=== PATIENT | female | born 1995 | race Caucasian/White ===

== ENCOUNTER 2020-08-05 14:20 | Emergency (ER) | payer OTHER, SELFPAY ==
[2020-08-05 14:28] VITALS: BP 129/90; PULSE 85; RESP 15; TEMP 36.4; O2SAT 100
--- NOTE | 2020-08-05 14:59 | ED.FEMALEGU ---
HPI - Female Genitourinary General Chief complaint: Vaginal Bleeding Stated complaint: vaginal bleeding Time Seen by Provider: 08/05/20 14:47 Source: patient Mode of arrival: ambulatory Limitations: no limitations History of Present Illness HPI Narrative: Patient is a 25-year-old female complaining of vaginal bleeding accompanied by mild lower abdominal cramping x2 weeks. Patient states that she is currently on oral contraceptive pills. Patient denies any change in her OCPs. Denies being . Denies any chest pain, shortness of breath, vaginal discharge, fever, chills or urinary symptoms. Related Data Allergies Allergy/AdvReac Type Severity Reaction Status Date / Time ibuprofen [From [facility]] Allergy Unknown Verified 08/05/20 14:27 Penicillins Allergy Hives Verified 08/05/20 14:27 Review of Systems Review of Systems: All systems reviewed & are unremarkable except as noted in HPI and below Constitutional: Constitutional: Denies body ache(s), Denies chills, Denies excessive sweating, Denies fatigue, Denies fever(s), Denies headache(s), Denies lethargy, Denies malaise, Denies weakness and Denies weight loss Eyes: Eyes: Denies blurry vision, Denies change in vision and Denies loss of vision ENT: Denies dizziness, Denies ear discharge, Denies headache(s), Denies lip swelling, Denies epistaxis, Denies nasal congestion, Denies neck pain, Denies throat swelling and Denies tongue swelling Cardiovascular: Cardiovascular: Denies chest pain, Denies chest pain at rest, Denies chest pain with activity, Denies diaphoresis, Denies rapid heart rate, Denies edema, Denies irregular heart rhythm, Denies lightheadedness, Denies palpitations, Denies dyspnea and Denies dyspnea on exertion Respiratory: Respiratory: Denies chest congestion, Denies cough, Denies hemoptysis, Denies dyspnea and Denies dyspnea on exertion Gastrointestinal: Gastrointestinal: Denies abdominal pain, Denies melena, Denies hematochezia, Denies diarrhea, Denies nausea, Denies vomiting and Denies hematemesis Musculoskeletal: Musculoskeletal: Denies abnormal gait, Denies deformity, Denies joint swelling, Denies limited range of motion, Denies neck pain and Denies numbness Neurologic: Denies Abnormal speech present, Denies abnormal gait, Denies confusion, Denies dizziness, Denies headache(s), Denies focal weakness, Denies loss of vision, Denies numbness, Denies Other visual disturbances, Denies Sensory deficit (Neuro) and Denies weakness Psychiatric: Psychiatric: Denies confusion, Denies depression, Denies auditory hallucinations, Denies homicidal ideation and Denies suicidal ideation Endocrine: Endocrine: Denies cold intolerance, Denies excessive sweating, Denies fatigue, Denies heat intolerance and Denies palpitations Hematologic/Lymphatic: Hematologic/Lymphatic: Denies easy bleeding and Denies easy bruising Allergic/Immunologic: Allergic/Immunologic: Denies lip swelling, Denies throat swelling and Denies tongue swelling PMF Social History Social History Gender identity (if verbalized by the patient): Female Comments Past medical history: None Family history: Noncontributory Social history: Non-smoker, occasional EtOH use, no drug use Exam Const: General: cooperative, healthy appearing, comfortable, no acute distress, well developed, alert and awake; No confusion Orientation/consciousness: oriented to person, oriented to place, oriented to time, patient oriented x3 and No confusion Limitations: no limitations HENMT: Head: normal to inspection, normocephalic and atraumatic Ears: hearing grossly normal bilaterally, TM normal on the right and TM normal on the left General nose exam: Normal external nose present, Normal nares present and No nasal discharge present Face and sinus: normal facial exam Mouth: Yes Normal oral and palatal mucosa present, Yes lip normal, Yes tongue normal and Yes oropharynx normal Throat: posterior oropharynx normal, tonsils normal and uv
[2020-08-05 15:41] LABS: Basophils Percent Auto 0.4 % (0.2-1.2); Eosinophils Absolute Auto 0.2 K/mm3 (0-0.3); Hematocrit 41.8 % (37.0-47.0); Hemoglobin 13.9 g/dL (12.0-15.0); Immature Granulocyte Absolute 0.02 K/mm3 (0.00-0.031); Immature Granulocyte Percent A 0.3 % (0-0.5); Lymphocytes Absolute Auto 1.58 K/mm3 (0.9-3.2); Lymphocytes Percent Auto 20.6 % (18.3-44.2); Mean Corpuscular HGB Conc 33.3 g/dl (32-36); Mean Corpuscular Hemoglobin 28.7 pg (26-34); Mean Corpuscular Volume 86.4 fl (80-100); Mean Platelet Volume 10.3 fl (7.4-10.4); Monocytes Absolute Auto 0.4 K/mm3 (0.1-0.6); Monocytes Percent Auto 5.3 % (2.6-8.5); Neutrophils Absolute Auto 5.5 K/mm3 (1.3-6.7); Neutrophils Percent Auto 71.4 % (45.5-73.1); Platelet Count Result 311 k/mm3 (150-375); Red Blood Count 4.84 M/mm3 (4.2-5.4); Red Cell Distribution Width 12.6 % (11.5-14.5); White Blood Count 7.7 K/mm3 (4.5-10.0)
[2020-08-05 15:51] LABS: Alanine Aminotransferase 17 U/L (4-35); Albumin Level 4.3 g/dL (3.5-5.1); Alkaline Phosphatase 116 U/L (38-126); Anion Gap 10 mmol/L (8-16); Aspartate Amino Transferase 27 U/L (14-36); Bilirubin,Total 0.2 mg/dL (0.2-1.3); Blood Urea Nitrogen 12 mg/dL (7-17); Calcium 9.9 mg/dL (8.4-10.2); Carbon Dioxide 27 mmol/L (22-30); Chloride 106 mmol/L (98-107); Estimated CRCL calculation 109 ml/min; Estimated Glomerular Filt Rate > 60; Glucose 93 mg/dL (65-105); Potassium 4.3 mmol/L (3.4-5.0); Sodium 143 mmol/L (137-145)
[2020-08-05] MEDS: SODIUM CHLORIDE 0.9% IV 1,000 ML 999 ML IV CONT (15:52)
[2020-08-05 16:13] VITALS: O2SAT 100
[2020-08-05 16:15] VITALS: BP 132/82; O2SAT 100
[2020-08-05] MEDS: IBUPROFEN 400 MG TABLET 800 MG PO (16:32)
[2020-08-05 17:20] VITALS: BP 117/73; PULSE 80; RESP 16; TEMP 36.8; O2SAT 100
== END 2020-08-05 17:20 | disposition home or self-care (01) ==
PROVIDERS: Emergency Provider Emergency Medicine
DX: N93.8 Other specified abnormal uterine and vaginal bleeding (principal)
CPT/HCPCS: 36415; 80053; 81025; 85025; 96360; 99283; A9270; J7030

== ENCOUNTER 2020-08-06 10:00 | Outpatient (CLI) | payer OTHER, SELFPAY ==
[2020-08-06 11:05] LABS: Free T4 Free Thyroxine 1.06 ng/mL (0.78-2.19)
[2020-08-09 08:46] LABS: Prolactin 8.2 ng/mL (***)
== END 2020-08-06 10:01 | disposition home or self-care (01) ==
LOC: ANHLAB 10:02
PROVIDERS: Visit Provider Obstetrics & Gynecology
DX: N93.9 Abnormal uterine and vaginal bleeding, unspecified (principal)
CPT/HCPCS: 36415; 84146; 84439; 84443

== ENCOUNTER 2020-08-12 14:34 | Outpatient (CLI) | payer OTHER, SELFPAY ==
--- NOTE | ~2020-08-12 | US_ITS ---
EXAMINATION: US pelvic complete w TV DATE: 08/12/2020 15:06 INDICATION: Abnormal uterine and vaginal bleeding Comparison:No prior studies for comparison. TECHNIQUE: Multiple transabdominal and endovaginal sonographic images of the pelvis performed. FINDINGS: The uterus measures 8 x 3.1 x 4.4 cm. The endometrial complex measures 8 mm. The right ovary measures 1.7 x 2.6 x 1.9 cm and the left ovary measures 2.5 x 1.3 x 1.4 cm. There ar e small follicles in each ovary. There is a 1.7 cm right ovarian cyst. Normal doppler signal in both ovaries. There is no free fluid in the pelvis. There are no abnormal masses seen on either side. IMPRESSION: 1. Right ovarian cyst measuring 1.7 cm. Otherwise, unremarkable pelvic ultrasound. Reviewed, dictated and finalized at location A. IMPRESSION: 1. Right ovarian cyst measuring 1.7 cm. Otherwise, unremarkable pelvic ultrasou nd.
== END 2020-08-12 14:35 | disposition home or self-care (01) ==
PROVIDERS: Visit Provider Obstetrics & Gynecology
DX: N93.9 Abnormal uterine and vaginal bleeding, unspecified (principal); N83.291 Other ovarian cyst, right side
CPT/HCPCS: 76830; 76856

== ENCOUNTER 2023-02-09 19:20 | Emergency (ER) | payer OTHER, SELFPAY ==
[2023-02-09 19:38] VITALS: BP 152/88; PULSE 80; RESP 16; TEMP 36.6; O2SAT 98
--- NOTE | 2023-02-09 19:41 | ED.EYEPROB ---
HPI - Eye Problem General Chief complaint: Eye Problems Stated complaint: left eye pain Source: patient, RN notes reviewed and old records reviewed Mode of arrival: ambulatory Limitations: no limitations History of Present Illness HPI Narrative: 27-year-old female presents to [facility] with complaints of left eye redness, irritation, drainage this started today. Patient denies any other complaints. MD chief complaint: eye redness Onset (ago): day(s) (1) Related Data Allergies Allergy/AdvReac Type Severity Reaction Status Date / Time ibuprofen [From [facility]] Allergy Unknown Verified 02/09/23 19:37 Penicillins Allergy Hives Verified 02/09/23 19:37 Review of Systems Constitutional: Constitutional: Reports no additional constitutional complaints Eyes: Eyes: Reports as per HPI, Denies blind spots, Denies blurry vision, Denies exophthalmos, Denies change in vision, Denies dry eyes, Reports irritation, Reports itchy eyes, Denies loss of vision and Reports requires corrective lenses ENT: Reports system reviewed and no additional complaints, except as documented Cardiovascular: Cardiovascular: Reports no additional cardiovascular complaints Respiratory: Respiratory: Reports no additional respiratory complaints Neurologic: Reports system reviewed and no additional complaints, except as documented [facility] Past Medical History Medical History Anxiety Asthma Chlamydia History of blood transfusion Miscarriage Surgical History Surgical History History of cholecystectomy History of dilation and curettage [place] teeth removed Family History Family History Father Hypertension Heart disease Mother Depression Breast cancer Grandparent Heart disease Hypertension Cervical cancer Thyroid disorder Sibling Depression Social History Social History Smoking status: Current every day smoker Tobacco type: cigarettes Alcohol intake: current Alcohol use details: socially Substance use: former Substance use type: former substance user and other 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 There is no relevant family history pertinent to the patient complaint. Exam Const: General: cooperative, healthy appearing, no acute distress and well nourished Nutritional Appearance: well nourished Orientation/consciousness: patient oriented x3 Limitations: no limitations HENMT: Head: normal to inspection and normocephalic Ears: external ears normal, TM's normal bilaterally, mastoids normal and Abnormal EAC present Face/Nose/Sinus: normal facial exam Face and sinus: normal facial exam Mouth: Yes Normal oral and palatal mucosa present, Yes oropharynx normal and Yes moist mucous membranes Throat: posterior oropharynx normal, tonsils normal, uvula midline and no uvular edema Eyes: Visual Marcano: normal visual marcano by confrontation Alignment and Position: alignment normal Periorbital: periorbital findings normal Eyelids: eyelids normal Conjunctivae: conjunctivae normal Sclera: scleral abnormality left ( Erythematous) Pupils: Equal, round and reactive pupils present Resp: Effort & Inspection: normal respiratory effort, able to speak in complete sentences, no audible wheezes, no cough, no respiratory distress and no retractions Auscultation: clear to auscultation bilaterally, no crackles, no rales, no rhonchi and no wheezes Cardio: Rate: regular rate Rhythm: regular rhythm Skin: General skin exam: normal color and no rashes or lesions noted Neuro: General: patient oriented x3 Cranial nerve
== END 2023-02-09 19:50 | disposition home or self-care (01) ==
PROVIDERS: Emergency Provider Registered Nurse
DX: H10.32 Unspecified acute conjunctivitis, left eye (principal); F17.210 Nicotine dependence, cigarettes, uncomplicated; J45.909 Unspecified asthma, uncomplicated
CPT/HCPCS: 99213; G0463

== ENCOUNTER 2023-04-06 18:04 | Emergency (ER) | payer OTHER, SELFPAY ==
--- NOTE | ~2023-04-06 | XR_ITS ---
EXAMINATION: XR lumbar spine min 4V DATE: 04/06/2023 19:29 INDICATION: Sharp shooting low back pain TECHNIQUE: Anteroposterior and lateral views of the lumbar spine, and cone-down lateral view of the l umbosacral junction were obtained. COMPARISON: None. FINDINGS: Alignment is normal. Vertebral body and disc heights are normal. Sacral arches are intact. No fractur es identified. The lumbar facet and bilateral sacroiliac joint spaces appear normal. A few small phle boliths in the pelvis. IMPRESSION: 1. Negative lumbar spine radiographs. Reviewed, dictated and finalized at location A. LETTERER
--- NOTE | 2023-04-06 18:07 | ED.BACK ---
HPI - Back Pain/Injury General Chief Complaint: Back Pain/Injury Stated Complaint: back pain Time Seen by Provider: 04/06/23 18:06 Source: patient Mode of arrival: ambulatory Limitations: no limitations History of Present Illness HPI Narrative: Patient is a 19-year-old female who presents with low back pain that started today after bending over. Patient reports it is center back and does not radiate. Denies any numbness, tingling or weakness to lower extremities. Denies any loss of bowel or bladder. Has taken Tylenol and ibuprofen for pain. Denies any previous back history Related Data Allergies Allergy/AdvReac Type Severity Reaction Status Date / Time Penicillins Allergy Hives Verified 04/06/23 18:13 Review of Systems Review of Systems: All systems reviewed & are unremarkable except as noted in HPI and below Constitutional: Constitutional: Denies body ache(s), Denies chills, Denies fatigue, Denies fever(s), Denies headache(s), Denies malaise and Denies weakness Eyes: Eyes: Denies blurry vision, Denies irritation and Denies loss of vision ENT: Denies otalgia, Denies headache(s), Denies nasal discharge, Denies sinus pain and Denies sore throat Cardiovascular: Cardiovascular: Denies chest pain, Denies irregular heart rhythm and Denies dyspnea Respiratory: Respiratory: Denies dyspnea Gastrointestinal: Gastrointestinal: Denies abdominal pain, Denies melena, Denies hematochezia, Denies diarrhea, Denies nausea and Denies vomiting Musculoskeletal: Musculoskeletal: Reports back pain, Denies myalgias and Denies arthralgias Integumentary/Breasts: Skin/Breast: Denies pruritus and Denies rash Neurologic: Denies headache(s), Denies loss of vision and Denies weakness Psychiatric: Psychiatric: Reports no additional psychiatric complaints Endocrine: Endocrine: Denies fatigue PMFSH Past Medical History Medical History Anxiety Asthma Chlamydia History of blood transfusion Miscarriage Surgical History Surgical History History of cholecystectomy History of dilation and curettage [place] teeth removed Family History Family History Father Hypertension Heart disease Mother Depression Breast cancer Grandparent Heart disease Hypertension Cervical cancer Thyroid disorder Sibling Depression Social History Social History Smoking status: Current every day smoker Tobacco type: cigarettes Alcohol intake: current Alcohol use details: socially Substance use: former Substance use type: former substance user and other 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 There is no relevant family history pertinent to the presenting complaint. Exam Const: General: cooperative, healthy appearing, comfortable, no acute distress and well nourished Nutritional Appearance: well nourished Orientation/consciousness: patient oriented x3 Limitations: no limitations HENMT: Head: normal to inspection, normocephalic and atraumatic Ears: hearing grossly normal bilaterally and external ears normal Face/Nose/Sinus: Normal external nose present, normal facial exam and face symmetric Face and sinus: normal facial exam and face symmetric Mouth: Yes lip normal Eyes: General: appearance normal, both eyes and all related structures Alignment and Position: alignment normal and position normal Periorbital: periorbital findings normal Eyelids: eyelids normal Pupils: Equal, round and reactive pupils present EOM: EOMs intact bilaterally Neck: Neck: normal visual inspection, full ROM and supple Chest: Chest palpation & inspection: kael
[2023-04-06 18:18] VITALS: BP 143/74; PULSE 81; RESP 18; TEMP 36.8; O2SAT 99
== END 2023-04-06 20:12 | disposition home or self-care (01) ==
PROVIDERS: Emergency Provider Nurse Practitioner Family; PCP Nurse Practitioner
DX: S39.012A Strain of muscle, fascia and tendon of lower back, initial encounter (principal); X58.XXXA Exposure to other specified factors, initial encounter; J45.909 Unspecified asthma, uncomplicated
CPT/HCPCS: 72110; 99213; G0463

== ENCOUNTER 2024-04-26 00:44 | Emergency (ER) | payer OTHER, SELFPAY ==
--- OUTSIDE RECORDS SUMMARY | 2024-04-26 00:45 | XMS_ITS | Encounter Summary ---
Author Organization [facility] Address [address] [place] [address] Care Team Providers Care Head Operator Sulfide Name Role Phone Daria Main NP Primary Care Provider [phone] Encounter Details Date Type Department Care Team (Late st Contact Info) Description 08/31/2022 [employer] Message [facility] [address] [place] [address] [employer], [facility] Provider Air Quality Message Social History Tobacco Use Types Packs/Day Years Used Date Smoking Tobacco: Every Day Cigarettes 0.3 10 Passive Smoke Exposure: Current Smokeless Tobacco: Never Alcohol Use Standard Drinks/Week Comments Yes 0 (1 standard drink = 0.6 oz pur e alcohol) socially PHQ-2 Answer Date Recorded Patient Health Questionnaire-2 Score 1 04/04/2022 Comments No Sex and Gender Information Value Date Recorded Sex Assigned at Female 07/25/2023 7:54 AM CDT Legal Sex Female 6:29 PM TRIAGE ASSISTANT Gender Identity Female 07/25/2023 7:54 AM CDT Sexual Orientation Lesbian 07/25/2023 7: 54 AM CDT documented as of this encounter Plan of Treatment Not on file documented as of this encounter Visit Diagnoses Not on filedocumented in this encounter Additional Health Concerns Assessment Noted Time PHQ-9 Depression Total Score: 12 023 12:57 PM TRIAGE ASSISTANT documented as of this encounter Care Teams Head Operator Sulfide Relationship Specialty Start Date End Date Daria Main NP [address] [place] [address] PCP - General NURSE PRACTITIONER 03/31/22 documented as of this encounter
--- OUTSIDE RECORDS SUMMARY | 2024-04-26 00:45 | XMS_ITS | Encounter Summary ---
Author Organization [facility] Address [address] [place] [id number] Care Team Providers Care Crayon Painter Name Role Phone Daria Main NP Primary Care Provider [phone] Encounter Details Date Type Department Care Team (Late st Contact Info) Description 08/11/2022 [employer] Message Enc [facility] Family Medicine - [place] [address] [facility] [address] [place] [id number] Daria Mian, BETSY [address] [place] [id number] Mammogram Social History Tobacco Use Types Packs/Day Years [...] AM CDT Legal Sex Female 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
--- OUTSIDE RECORDS SUMMARY | 2024-04-26 00:45 | XMS_ITS | Clinical Summary ---
Author Organization [facility] Address [address] [place] [address] Care Team Providers Care Web Analytics Specialist Name Role Phone Daria Main NP Primary Care Provider [phone] Allergies Active Allergy Reactions Criticality Noted Date Comments Penicillins Eyes Water & Itch,Hives,Itching,Rash,Shakiness,Shor tness of Breath,Swelling High 04/04/2022 Medications No known medications Active Problems Problem Noted Date Diagnosed Date PCOS (polycystic ovarian syndrome) 04/22/2022 Menorrhagia with irregular cycle 04/22/2022 Anxiety 04/04/2022 Asthma ([facility]) 04/04/2022 Bipolar 1 disorder ([facility]) 04/04/2022 Excess body and facial hair 04/04/2022 Cigarette nicotine dependenc e with nicotine-induced disorder 04/04/2022 Class 3 severe obesity with body mass index (BMI) of 40.0 to 44.9 in adult, unspecified obesity type, unspecified whether serious comorbidity present ([facility]) 04/04/2022 Acne vulgaris 04/04/2022 Resolved Problems Problem Noted Date Diagnosed Date Resolved Date Nipple pain 04/04/2022 07/24/2023 Encounters Date Type Department Care Team Description 02/05/2024 12:46 PM HAND FILER BALANCE WHEEL - 02/05/2024 11:59 PM HAND FILER BALANCE WHEEL Hospital Encounter [facility] [place] [address] Daria Main, BETSY Discharge Disposition: Home or Self Care (Routine Discharge) 02/05/2024 Travel 01/26/2024 11:40 AM HAND FILER BALANCE WHEEL Office Visit [facility] Family Medicine - [place] [address] [place] [address] Daria Main NP Vaginal Problem (Patient presents with c/o abnormal vaginal bleeding and has odor. She has a history of ovarian cyst. Possible BV); Skin Problem (C/o skin is feeling thinner and sensitive. If she scratches a little she will bleed) 01/26/2024 - 01/26/2024 11:59 PM HAND FILER BALANCE WHEEL Hospital Encounter [facility] [address] [facility] [address] [place] [address] Daria Main NP Discharge Disposition: Home or Self Care (Routine Discharge) 01/26/2024 Travel from Last 3 Months Family History Medical History Relation Comments Breast Cancer Maternal Aunt Cervical cancer Maternal Grandmother Breast Cancer Mother Relation Status Comments Maternal Aunt Alive Maternal Grandmother Mother Social History Tobacco Use Types Packs/Day Years Used Date Smoking Tobacco: Every Day Cigarettes 0.3 10 Passive Smoke Exposure: Current Smokeless Tobacco: Never Tobacco Cessation:Ready to Q uit: No; Counseling Given: Yes Alcohol Use Standard Drinks/Week Comments Yes 0 (1 standard drink = 0.6 oz pur e alcohol) socially PHQ-2 Answer Date Recorded Patient Health Questionnaire-2 Score 2 07/13/2023 Comments No Sex and Gender Information Value Date Recorded Sex Assigned at Female 07/25/2023 7:54 AM CDT Legal Sex Female 6:29 PM HAND FILER BALANCE WHEEL Gender Identity Female 07/25/2023 7:54 AM CDT Sexual Orientation Lesbian 07/25/2023 7: 54 AM CDT Last Filed Vital Signs Vital Sign Reading Time Taken Comments Blood Pressure 120/82 01/26/2024 11:34 AM HAND FILER BALANCE WHEEL Pulse 113 01/26/2024 11:34 AM HAND FILER BALANCE WHEEL Temperature 37.2 C (99 F) 01/26/2024 11:34 AM HAND FILER BALANCE WHEEL Respiratory Rate 20 01/26/2024 11:34 AM HAND FILER BALANCE WHEEL Oxygen Saturation 97% 01/26/2024 11:34 AM HAND FILER BALANCE WHEEL Inhaled Oxygen Concentration - - Weight 115.2 kg (254 lb) 01/26/2024 11:34 AM HAND FILER BALANCE WHEEL Height 162.6 cm (5' 4 ) 01/26/2024 11:34 AM HAND FILER BALANCE WHEEL Body Mass Index 43.6 01/26/2024 11:34 AM HAND FILER BALANCE WHEEL Plan of Treatment Health Maintenance Due Date Last Done Comments Pneumococcal Vaccine: Pediatrics (0 to 5 Years) and At-Risk Patients (6 to 64 Years) (1 of 2 - PCV) 2000 DTaP, Tdap and Td Vaccines ( 1 - Tdap) 2013 Hepatitis B Vaccines (1 of 3 - 19+ 3-dose series) 2013 COVID-19 Vaccine (1 - 2023-2 5 season) 2023 Influenza Adult (#1) 2023 PHQ-2 (Physician [place]) 03/06/2024 07/13/2023 Annual Physical 07/23/2024 07/24/2023 Cervical Cancer Screening Pa p Smear (Age 21 to 29) Every 3 Years 07/23/2026 07/24/2023, 07/24/2023, 07/24/2023 Cervical Cancer Screening 07/23/2026 Hepatitis C Completed 04/14/2022 HPV Vaccines Aged Out No longer eligi ble based on patient's age to complete this topic Meningococcal B Vaccine Aged Out No l onger eligible based on patient's age to complete this topic Meningococcal Vaccine Aged Out No deng sarah eligible based on patient's age to complete this topic RSV Immunizations Under 20 Months Aged Out No longer eligible b ased on patient's age to complete this topic Procedures Procedure Name Priority Date/Time Associated Diagnosis Comments US PELVIC NON OB COMP TA+TV JASON 02/05/2024 1:34 PM HAND FILER BALANCE WHEEL Abnormal vaginal bleeding Hx of ovarian cyst BACTERIAL VAGINOSIS PCR Routine 01/26/2024 11:56 AM HAND FILER BALANCE WHEEL Vaginal discharge CHLAM/GC/TRICHOMONA S PROFILE Routine 01/26/2024 11:56 AM HAND FILER BALANCE WHEEL Vaginal discharge CYTOPATH CERV/VAG THIN LAYER Routine 07/24/2023 12:00 AM CDT HEPATITIS C ANTIBODY W/RFX TO HCV RNA Routine 04/14/2022 10:11 AM HAND FILER BALANCE WHEEL Need for hepatitis C screening test from Last 3 Months or Most Recently Relevant to Health Maintenance Results * US PELVIC NON OB COMP TA+TV (02/05/2024 1:34 PM HAND FILER BALANCE WHEEL) Anatomical Region Laterality Modality Pelvis Ultrasound 02/05/2024 2:21 PM HAND FILER BALANCE WHEEL Impressions 02/05/2024 2:22 PM HAND FILER BALANCE WHEEL Impression: Unremarkable sonographic appearance of the uterus and adnexa. Referred By: DARIA MAIN Interpreted By: Brett Muñoz MD, 02/05/2024 2:21 PM Narrative 02/05/2024 2:22 PM HAND FILER BALANCE WHEEL [address] [address] Procedure: US PELVIC NON OB COMP TA+TV Indication: vaginal bleeding hx of ovarian cysts Comparison: None available Technique: Both transabdominal and transvaginal ultrasound were performed of the pelvis. Transabdominal images provide a more complete overview of the pelvis, allowing visualization of anatomy and detection of pathology located beyond the field of view of transvaginal ultrasound. Transvaginal images provide superior resolution, facilitating improved characterization of pelvic structures and detection of pathology too small to be seen at transabdominal ultrasound. If both studies had not been performed, the likelihood of detecting and characterizing abnormalities relevant to the patients condition would have been substantially decreased. Color Doppler and spectral Doppler were performed of the ovaries. Findings: UTERUS: The uterus is anteverted. It measures 8.6 x 2.9 x 3.5 cm. No masses. The endometrium measures 0.5 cm. Nabothian cysts. RIGHT ADNEXA: The right ovary appears normal. The right ovary measures 3.3 x 1.6 x 3.4 cm. Documented Doppler flow within the right ovary. LEFT ADNEXA: The left ovary appears normal. The left ovary measures 2.8 x 2.6 x 2.1 cm. Documented Doppler flow within the left ovary. OTHER: There is no free fluid in the pelvis. The urinary bladder appears normal. Procedure Note Brett Muñoz MD - 02/05/2024 [facility] [address] [place], [place] [address] Procedure: US PELVIC NON OB COMP TA+TV Indication: vaginal bleeding hx of ovarian cysts Comparison: None available Technique: Both transabdominal and transvaginal ultrasound were performedof the pelvis. Transabdominal images provide a more complete overview ofthe pelvis, allowing visualization of anatomy and detection of pathologylocated beyond the field of view of transvaginal ultrasound. Transvaginalimages provide superior resolution, facilitating improved characterizationof pelvic structures and detection of pathology too small to be seen attransabdominal ultrasound. If both studies had not been performed, thelikelihood of detecting and characterizing abnormalities relevant to thepatients condition would have been substantially decreased. Color Dopplerand spectral Doppler were performed of the ovaries. Findings: UTERUS: The uterus is anteverted. It measures 8.6 x 2.9 x 3.5 cm. Nomasses. The endometrium measures 0.5 cm. Nabothian cysts. RIGHT ADNEXA: The right ovary appears normal. The right ovary measures 3.3 x 1.6 x 3.4cm. Documented Doppler flow within the right ovary. LEFT ADNEXA: The left ovary appears normal. The left ovary measures 2.8 x 2.6 x 2.1 cm.Documented Doppler flow within the left ovary. OTHER: There is no free fluid in the pelvis. The urinary bladder appearsnormal. Impression: Unremarkable sonographic appearance of the uterus and adnexa. Referred By: DARIA MAIN Interpreted By: Brett Muñoz MD, 02/05/2024 2:21 PM us Daria Main MAT SEWER ULTRASOUND Final Res ult * (ABNORMAL) BACTERIAL VAGINOSIS PCR (01/26/2024 11:56 AM HAND FILER BALANCE WHEEL) SPEC DESCRIPTION VAGINAL SPECIMEN 01/26/2024 11:56 AM HAND FILER BALANCE WHEEL [facility] BACTERIAL VAGINITIS POSITIVE(A) NEGATIVE 01/30/2024 11:38 PM HAND FILER BALANCE WHEEL [facility] Comment:PERFORMED BY NUCLEIC ACID AMPLIFICATION VAGINAL STRUCTURE / Unknown 01/26/2024 11:56 AM HAND FILER BALANCE WHEEL Daria Main NP MICROBIOLOGY - GENERAL OR DERABLES Final Result Performing Organization Address City/[facility]/ZIP Co de Phone Number [facility] [address] [place] [address], * (ABNORMAL) CHLAM/GC/TRICHOMONAS PROFILE (01/26/2024 11:56 AM HAND FILER BALANCE WHEEL) SPEC DESCRIPTION VAGINAL SPECIMEN 01/26/2024 11:56 AM HAND FILER BALANCE WHEEL [facility] CHLAMYDIA RNA TMA NEGATIVE NEGATIVE 4:06 AM [facility] Comment:PERFORMED BY NUCLEIC ACID AMPLIFICATION N.GONORRHOEAE RNA TMA NEGATIVE NEGATIVE 01/30/2024 4:06 AM [facility] Comment:PERFORMED BY NUCLEIC ACID AMPLIFICATION TRICHOMONAS POSITIVE(A) NEGATIVE 01/30/2024 12:55 AM [facility] Comment:PERFORMED BY NUCLEIC ACID AMPLIFICATION VAGINAL STRUCTURE / Unknown 01/26/2024 11:56 AM HAND FILER BALANCE WHEEL Daria Main NP MICROBIOLOGY - GENERAL OR DERABLES Final Result Performing Organization Address City/[facility]/ZIP Co de Phone Number [facility] [address] [place] [address], * Cytopath Cerv/Vag Thin Layer (07/24/2023 12:00 AM CDT) THIN PREP PAP [facility] [address] [place] [address] Department of Pathology Pathology Report CERVICAL/VAGINAL PAP SMEAR REPORT Name: GUSTAVO NIELSON Garry Age: 4 1995 (Age: 28) Location: [facility] Sex: F Collected Date: 07/24/2023 Hospital #: [id number] Date Received: 07/26/2023 Date Reported: 07/28/2023 Provider: DARIA MAIN NP INTERPRETATION CERVICAL/ENDOCERVI CHELSEY: SATISFACTORY FOR EVALUATION. ENDOCERVICAL/TRANS FORMATION ZONE COMPONENT PRESENT. NEGATIVE FOR INTRAEPITHELIAL LESION OR MALIGNANCY. REACTIVE SQUAMOUS CELLS. TRICHOMONADS PRESENT. NEGATIVE FOR HIGH RISK HPV. The FDA approved Aptima HPV assay is an in vitro nucleic acid amplification test for the qualitative detection of E6/E7 viral messenger RNA (mRNA) from 14 high-risk types of human papillomavirus (HPV) in cervical specimens. The high-risk HPV types detected by the assay include: 16,18,31,33,35,39, 45,51,52,56,58,59, 66, and 68. Initial cytologic screening was performed at [facility] [address] [place] [address]. This case was interpreted and signed out at [facility], [address] [place] [address]. Electronically Signed Out JILLIAN Larose MD (ASCP) CLINICAL HISTORY Z11.51 SCREENING FOR HPV (HUMAN PAPILLOMAVIRUS) Z12.4 CERVICAL CANCER SCREENING SCREENING PAP ThinPrep Pap Test with HR HPV testing requested. Date of Last Menstrual Period: 07/03/2023 Menstrual Status: Irregular SPECIMEN SUBMITTED CERVICAL/ENDOCERVI CHELSEY Specimen Received:1 Thin Prep Vial, Image Assisted Pap (SMD) Please note: The Pap smear is not a diagnostic test. It is a screening test. Negative results on combined screening (Pap test and HPV-DNA) have a high negative predictive value (99.1-100 percent) for cervical cancer. The pap test is not effective in detecting cervical adenocarcinoma. [facility] 07/24/2023 07/26/2023 7:0 8 AM CDT Comment:CERVICAL/ENDOCERVICA L us Daria Main NP PATHOLOGY/CYTOLOGY ORDERA BLES Final Result [facility] [address] [place] [address], * HEPATITIS C ANTIBODY W/RFX TO HCV RNA ([facility] ONLY) (04/14/2022 10:11 AM HAND FILER BALANCE WHEEL) HEPATITIS C AB NON-REACT ARCHIE NON-REACT ARCHIE [facility] SIGNAL TO CUTOFF 0.07 <1.00 [facility] Comment: HCV antibody was non-reactive. There is no laboratory evidence of HCV infection. In most cases, no further action is required. However, if recent HCV exposure is suspected, a test for HCV RNA (test code 10100) is suggested. For additional information please refer to http://education.[employer]/faq/YAM77n7 (This link is being provided for informational/ educational purposes only.) 04/14/2022 10:1 1 AM HAND FILER BALANCE WHEEL 04/14/2022 10:15 AM HAND FILER BALANCE WHEEL Narrative [facility] [place] [facility] - 04/20/2022 1:16 PM HAND FILER BALANCE WHEEL FASTING:YES FASTING: YES Resulting Agency Comment Performing Organization Information: Site ID: [place] Name: [employer] Address: [address] [address] Director: Valeria Contreras MD us Daria Main NP LABORATORY Final Res ult Performing Organization Address City/[facility]/ZIP Co de Phone Number [facility] [place] [facility] [address], [place] [address] from Last 3 Months or Most Recently Relevant to Health Maintenance Care Teams Web Analytics Specialist Relationship Specialty Start Date End Date Daria Main NP [address] [place] [address] PCP - General NURSE PRACTITIONER 03/31/22
[2024-04-26 00:52] VITALS: BP 132/66; PULSE 100; RESP 16; TEMP 36.6; O2SAT 100
[2024-04-26 03:30] VITALS: BP 111/81; PULSE 89; RESP 16; O2SAT 98
[2024-04-26] MEDS: ONDANSETRON HCL ODT 4 MG TABLET (03:30)
[2024-04-26] MEDS: SODIUM CHLORIDE 0.9% IV 1,000 ML 999 ML (04:10)
[2024-04-26] MEDS: ONDANSETRON INJ 4 MG/2 ML VIAL (04:10)
[2024-04-26 04:47] LABS: Influenza A QL RT-PCR Negative (Negative); Influenza B QL RT-PCR Negative (Negative); RSV RNA, RT-PCR Negative (Negative); SARS-CoV-2 RNA PCR Negative (Negative)
--- OUTSIDE RECORDS SUMMARY | 2024-04-26 04:48 | XMS_ITS | Clinical Summary ---
Author Organization [facility] Address [address] [place] [address] Care Team Providers Care Food Safety Auditor Name Role Phone Daria Main NP Primary Care Provider [phone] Allergies Active Allergy Reactions Criticality Noted Date Comments Penicillins Eyes Water & Itch,Hives,Itching,Rash,Shakiness,Shor tness of Breath,Swelling High 04/04/2022 Medications No known medications Active Problems Problem Noted Date Diagnosed Date PCOS (polycystic ovarian syndrome) 04/22/2022 Menorrhagia with irregular cycle 04/22/2022 Anxiety 04/04/2022 [address]hma ([facility]) 04/04/2022 Bipolar 1 disorder ([facility]) 04/04/2022 Excess body and facial hair 04/04/2022 Cigarette nicotine dependenc e with nicotine-induced disorder 04/04/2022 Class 3 severe obesity with body mass index (BMI) of 40.0 to 44.9 in adult, unspecified obesity type, unspecified whether serious comorbidity present ([facility]) 04/04/2022 Acne vulgaris 04/04/2022 Resolved Problems Problem Noted Date Diagnosed Date Resolved Date Nipple pain 04/04/2022 07/24/2023 Encounters Date Type Department Care Team Description 02/05/2024 12:46 PM MANGANESE WHEELER - 02/05/2024 11:59 PM MANGANESE WHEELER Hospital Encounter [facility] [place] [address] Daria Main, BETSY Discharge Disposition: Home or Self Care (Routine Discharge) 02/05/2024 Travel 01/26/2024 11:40 AM MANGANESE WHEELER Office Visit [facility] Family Medicine - [place] [address] [place] [address] Daria Main NP Vaginal Problem (Patient presents with c/o abnormal vaginal bleeding and has odor. She has a history of ovarian cyst. Possible BV); Skin Problem (C/o skin is feeling thinner and sensitive. If she scratches a little she will bleed) 01/26/2024 - 01/26/2024 11:59 PM MANGANESE WHEELER Hospital Encounter [facility] [address] [facility] [place] [address] Daria Main NP Discharge Disposition: Home or [...] AM CDT Legal Sex Female 6:29 PM MANGANESE WHEELER Gender Identity Female 07/25/2023 7:54 AM CDT Sexual Orientation Lesbian 07/25/2023 7: 54 AM CDT Last Filed Vital Signs Vital Sign Reading Time Taken Comments Blood Pressure 120/82 01/26/2024 11:34 AM MANGANESE WHEELER Pulse 113 01/26/2024 11:34 AM MANGANESE WHEELER Temperature 37.2 C (99 F) 01/26/2024 11:34 AM MANGANESE WHEELER Respiratory Rate 20 01/26/2024 11:34 AM MANGANESE WHEELER Oxygen Saturation 97% 01/26/2024 11:34 AM MANGANESE WHEELER Inhaled Oxygen Concentration - - Weight 115.2 kg (254 lb) 01/26/2024 11:34 AM MANGANESE WHEELER Height 162.6 cm (5' 4 ) 01/26/2024 11:34 AM MANGANESE WHEELER Body Mass Index 43.6 01/26/2024 11:34 AM MANGANESE WHEELER Plan of Treatment Health Maintenance Due Date [...] 2023 Influenza Adult (#1) 2023 PHQ-2 (Physician [place]) 03/06/2024 07/13/2023 Annual Physical 07/23/2024 07/24/2023 Cervical [...] OB COMP TA+TV JASON 02/05/2024 1:34 PM MANGANESE WHEELER Abnormal vaginal bleeding Hx of ovarian cyst BACTERIAL VAGINOSIS PCR Routine 01/26/2024 11:56 AM MANGANESE WHEELER Vaginal discharge CHLAM/GC/TRICHOMONA S PROFILE Routine 01/26/2024 11:56 AM MANGANESE WHEELER Vaginal discharge CYTOPATH CERV/VAG THIN LAYER Routine 07/24/2023 12:00 AM CDT HEPATITIS C ANTIBODY W/RFX TO HCV RNA Routine 04/14/2022 10:11 AM MANGANESE WHEELER Need for hepatitis C screening test from Last 3 Months or Most Recently Relevant to Health Maintenance Results * US PELVIC NON OB COMP TA+TV (02/05/2024 1:34 PM MANGANESE WHEELER) Anatomical Region Laterality Modality Pelvis Ultrasound 02/05/2024 2:21 PM MANGANESE WHEELER Impressions 02/05/2024 2:22 PM MANGANESE WHEELER Impression: Unremarkable sonographic appearance of the uterus and adnexa. Referred By: DARIA MAIN Interpreted By: Brett Muñoz MD, 02/05/2024 2:21 PM Narrative 02/05/2024 2:22 PM MANGANESE WHEELER [address] [address] Procedure: US PELVIC NON OB COMP TA+TV [...] Procedure Note Brett Muñoz MD - 02/05/2024 [facility] [address] [place], [place] [address] Procedure: US PELVIC NON OB COMP TA+TV [...] MD, 02/05/2024 2:21 PM us Daria Main COMPUTER SYSTEMS ANALYST ULTRASOUND Final Res ult * (ABNORMAL) BACTERIAL VAGINOSIS PCR (01/26/2024 11:56 AM MANGANESE WHEELER) SPEC DESCRIPTION VAGINAL SPECIMEN 01/26/2024 11:56 AM MANGANESE WHEELER [facility] BACTERIAL VAGINITIS POSITIVE(A) NEGATIVE 01/30/2024 11:38 PM MANGANESE WHEELER [facility] Comment:PERFORMED BY NUCLEIC ACID AMPLIFICATION VAGINAL STRUCTURE / Unknown 01/26/2024 11:56 AM MANGANESE WHEELER Daria Main NP MICROBIOLOGY - GENERAL OR DERABLES Final Result Performing Organization Address City/[facility]/ZIP Co de Phone Number [facility] [address] [place] [address], * (ABNORMAL) CHLAM/GC/TRICHOMONAS PROFILE (01/26/2024 11:56 AM MANGANESE WHEELER) SPEC DESCRIPTION VAGINAL SPECIMEN 01/26/2024 11:56 AM MANGANESE WHEELER [facility] CHLAMYDIA RNA TMA NEGATIVE NEGATIVE 4:06 AM [facility] Comment:PERFORMED BY NUCLEIC ACID AMPLIFICATION N.GONORRHOEAE RNA TMA NEGATIVE NEGATIVE 01/30/2024 4:06 AM [facility] Comment:PERFORMED BY NUCLEIC ACID AMPLIFICATION TRICHOMONAS POSITIVE(A) NEGATIVE 01/30/2024 12:55 AM [facility] Comment:PERFORMED BY NUCLEIC ACID AMPLIFICATION VAGINAL STRUCTURE / Unknown 01/26/2024 11:56 AM MANGANESE WHEELER Daria Main NP MICROBIOLOGY - GENERAL OR DERABLES Final Result Performing Organization Address City/[facility]/ZIP Co de Phone Number [facility] [address] [place] [address], * Cytopath Cerv/Vag Thin Layer (07/24/2023 12:00 AM CDT) THIN PREP PAP [facility] [address] [place] [address] Department of Pathology Pathology Report CERVICAL/VAGINAL PAP SMEAR REPORT Name: GUSTAVO NIELSON Garry Age: 4 1995 (Age: 28) Location: [facility] Sex: F Collected Date: 07/24/2023 Hospital #: [id number] Date Received: 07/26/2023 Date Reported: 07/28/2023 Provider: [...] 68. Initial cytologic screening was performed at [facility] [address] [place] [address]. This case was interpreted and signed out at [facility], [address] [place] [address]. Electronically Signed Out JILLIAN Larose MD (ASCP) [...] is not effective in detecting cervical adenocarcinoma. [facility] () [facility] 07/24/2023 07/26/2023 7:0 8 AM CDT Comment:CERVICAL/ENDOCERVICA L us Daria Main NP PATHOLOGY/CYTOLOGY ORDERA BLES Final Result [facility] [address] [place] [address], * HEPATITIS C ANTIBODY W/RFX TO HCV RNA ([facility] ONLY) (04/14/2022 10:11 AM MANGANESE WHEELER) HEPATITIS C AB NON-REACT ARCHIE NON-REACT ARCHIE [facility] SIGNAL TO CUTOFF 0.07 <1.00 [facility] Comment: HCV antibody was non-reactive. There is no laboratory evidence of HCV infection. In most cases, no further action is required. However, if recent HCV exposure is suspected, a test for HCV RNA (test code 82469) is suggested. For additional information please refer to http://education.[employer]/faq/YOQ73l0 (This link is being provided for informational/ educational purposes only.) 04/14/2022 10:1 1 AM MANGANESE WHEELER 04/14/2022 10:15 AM MANGANESE WHEELER Narrative [facility] [place] [facility] - 04/20/2022 1:16 PM MANGANESE WHEELER FASTING:YES FASTING: YES Resulting Agency Comment Performing Organization Information: Site ID: [place] Name: [employer] Address: [address] [address] Director: Valeria Contreras MD us Daria Main NP LABORATORY Final Res ult Performing Organization Address City/[facility]/ZIP Co de Phone Number [facility] [address], [place] [address] from Last 3 Months or Most Recently Relevant to Health Maintenance Care Teams Food Safety Auditor Relationship Specialty Start Date End Date Daria Main NP [address] [place] [address] PCP - General NURSE PRACTITIONER 03/31/22
--- OUTSIDE RECORDS SUMMARY | 2024-04-26 04:48 | XMS_ITS | Encounter Summary ---
Author Organization [facility] Address [address] [place] [address] Care Team Providers Care Buffet Attendant Name Role Phone Daria Main NP Primary Care Provider [phone] Encounter Details Date Type Department Care Team (Late st Contact Info) Description 08/11/2022 Voxli Message Enc [facility] Family Medicine - [place] [address] [facility] [address] [place] [phone] Daria Main, BETSY [address] [place] [phone] Mammogram Social History Tobacco Use Types Packs/Day [...] AM CDT Legal Sex Female 6:29 PM HOGSHEAD MAT INSPECTOR Gender Identity Female 07/25/2023 7:54 AM CDT Sexual Orientation Lesbian 07/25/2023 7: 54 AM CDT documented as of this encounter Plan of Treatment Not on file documented as of this encounter Visit Diagnoses Not on filedocumented in this encounter Additional Health Concerns Assessment Noted Time PHQ-9 Depression Total Score: 12 023 12:57 PM HOGSHEAD MAT INSPECTOR documented as of this encounter Care Teams Buffet Attendant Relationship Specialty Start Date End Date Daria Main NP [address] [place] [address] PCP - General NURSE PRACTITIONER 03/31/22 documented as of this encounter
--- OUTSIDE RECORDS SUMMARY | 2024-04-26 04:48 | XMS_ITS | Encounter Summary ---
Author Organization [facility] Address [address] [place] [address] Care Team Providers Care Life Guard Name Role Phone Daria Main NP Primary Care Provider [phone] [phone] Encounter Details Date Type Department Care Team (Late st Contact Info) Description 08/31/2022 Decuratehart Message [facility] [address] [place] [address] [place], [facility] Provider Air Quality Message Social History Tobacco [...] AM CDT Legal Sex Female 6:29 PM LAY MIDWIFE Gender Identity Female 07/25/2023 7:54 AM CDT Sexual Orientation Lesbian 07/25/2023 7: 54 AM CDT documented as of this encounter Plan of Treatment Not on file documented as of this encounter Visit Diagnoses Not on filedocumented in this encounter Additional Health Concerns Assessment Noted Time PHQ-9 Depression Total Score: 12 023 12:57 PM LAY MIDWIFE documented as of this encounter Care Teams Life Guard Relationship Specialty Start Date End Date Daria Main NP [address] [place] [address] PCP - General NURSE PRACTITIONER 03/31/22 documented as of this encounter
[2024-04-26 05:31] VITALS: BP 116/83; PULSE 87; RESP 15; O2SAT 99
== END 2024-04-26 05:33 | disposition home or self-care (01) ==
LOC: ANHED 04:45
PROVIDERS: Emergency Provider Emergency Medicine; PCP Nurse Practitioner
DX: K52.9 Noninfective gastroenteritis and colitis, unspecified (principal); Z20.822 Contact with and (suspected) exposure to COVID-19
CPT/HCPCS: 87637; 99283; A9270; J2405; J7030

== ENCOUNTER 2024-05-01 11:45 | Outpatient (CLI) | payer OTHER, SELFPAY ==
--- NOTE | ~2024-05-01 | MM_ITS ---
EXAMINATION: MM diagnostic antonio BI w amarilis HISTORY: Bilateral breast pain TECHNIQUE: 3-D tomosynthesis images of the breasts were performed and synthetic 2-D images were gener ated. CAD analysis was submitted and interpreted. COMPARISON: None BREAST PARENCHYMAL COMPOSITION:Dense: The breasts are heterogeneously dense, which may obscure small masses. FINDINGS: Parenchymal pattern of the breasts is unremarkable. No suspicious mass lesion or distortion . No suspicious microcalcification. IMPRESSION: No mammographic evidence for malignancy. BI-RADS Category 1: Negative Reviewed, dictated and finalized at location . OFF SAW OPERATOR PIPE BLANKS
--- OUTSIDE RECORDS SUMMARY | 2024-05-01 13:37 | XMS_ITS | Encounter Summary ---
Author Organization [facility] Address [address] [place] [address] Care Team Providers Care Rehanger Name Role Phone Daria Main NP Primary Care Provider [phone] [phone] Reason for Referral * Imaging (Urgent) - New Request Specialty Diagnoses / Procedures Referred By Wilman carr Referred To Contact RADIOLOGY Diagnoses Pain of both breasts Nipple pain Family history of breast cancer Procedures US BREAST ZELDA BIRAD COMP Daria Main NP [address] [place] [address] Phone: tel: fax: Referral ID Status Reason Start Date Expiration Date V isits Requested Visits Authorized New Request 04/30/2024 05/31/2025 1 1 DESIGNER * (Urgent) - New Request Specialty Diagnoses / Procedures Referred By Wilman carr Referred To Contact Diagnoses Pain of both breasts Nipple pain Family history of breast cancer Procedures MG DIAG W RAJNI BILAT DIGI Daria Main NP [address] [place] [address] Phone: tel: fax: Referral ID Status Reason Start Date Expiration Date V isits Requested Visits Authorized New Request 04/30/2024 1 1 DESIGNER Reason for Visit * Reason Onset Date Comments Mammography Order 04/29/2024 Breast Problem 04/29/2024 Encounter Details Date Type Department Care Team (Late st Contact Info) Description 04/29/2024 Telephone [facility] Family Medicine - [place] [address] [facility] [address] [place], [place] [address] Daria Main NP [address] [place] [address] Mammography Order; Breast Problem Social History Tobacco Use Types Packs/Day Years [...] AM CDT 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 I called to update Jamilah from [place] and she statedshe will get her scheduled jason DESIGNER * Cecy Kilpatrick MA - 04/30/2024 9:40 AM CSTAddended by: CECY KILPATRICK on: 04/30/2024 09:40 AM Modules accepted: Orders DESIGNER * Daria Main NP - 04/29/2024 4:45 PM CST Agreed. Yes, please place orders and place on dx breast cancer in mother DESIGNER * Cecy Kilpatrick MA - 04/29/2024 4:37 PM CST I spoke with the patient and she is having pain in both breast. She has a cyst that opened up on her right breast it drained all out but looks like it is healing just fine. She will need a bilateral dx mammogram with ultrasound placed to [place]. Ok to order? She also stated she was at the er on night with vomiting, diarrhea, and body aches. She was negative for covid and flu. She is still having the symptoms she is surviving on Pedialyte and Zofran. I advised her to schedule an appointment with you or go to the ER if no better for fluids. She voiced understanding DESIGNER * Daria Main NP - 04/29/2024 4:31 PM CST Can you call pt and find out more info. Is she having new issues. Pt had a diagnostic ordered from [place] 2 years ago but never had done. DESIGNER * Daria Main NP - 04/29/2024 4:29 PM CST Pt has breast cancer hx in her mother and another close family member. She will need a diagnostic and US. Pt had an order for a diagnostic a year ago but never got done. DESIGNER * Natalie Emanuel - 04/29/2024 10:10 AM CST Jamilah with [facility] mammography dept called, Gustavo self referred for a screening mammogram and her appt was Monday but Jamilah did not feel comfortable just doing a screening. Gustavo has a quarter size sore on her breast that was draining, nipple pain, and pain in both breasts. I didn't catchwhat side the sore was on. Jamilah wants to know if you need to see her, if you want her to do the screening, or if you want to order a diagnostic. Gustavo's phone number is [phone] if you need more info and Jamilah Snyder's callback number is [phone]. DESIGNER documented in this encounter Plan of Treatment Scheduled Orders Name Type Priority Associated Diagnoses Orde r Schedule MG DIAG W RAJNI BILAT DIGI MAMMO JASON Pain of both breasts Nipple pain Family history of breast cancer Expected: 04/30/2024, Expires: 06/28/2025 US BREAST ZELDA BIRAD COMP Ultrasound JASON Pain of both breasts Nipple pain Family history of breast cancer Expected: 04/30/2024, Expires: 04/30/2025 documented as of this encounter Visit Diagnoses Diagnosis Pain of both breasts- Primary Nipple pain Mastodynia Family history of breast cancer Family history of malignant neoplasm of breast documented in this encounter Additional Health Concerns Assessment Noted Time PHQ-9 Depression Total Score: 15 024 8:24 AM CDT documented as of this encounter Care Teams Rehanger Relationship Specialty Start Date End Date Daria Main NP [address] [place] [address] PCP - General NURSE PRACTITIONER 03/31/22 documented as of this encounter
--- OUTSIDE RECORDS SUMMARY | 2024-05-01 13:37 | XMS_ITS | Clinical Summary ---
Author Organization [facility] Address [address] [place] [address] Care Team Providers Care Wine Bottle Inspector Name Role Phone Daria Main NP Primary Care Provider [phone] [phone] Allergies Active Allergy Reactions Criticality Noted Date Comments Penicillins Eyes Water & Itch,Hives,Itching,Rash,Shakiness,Shor tness of Breath,Swelling High 04/04/2022 Medications No known medications Active Problems Problem Noted Date Diagnosed Date PCOS (polycystic ovarian syndrome) 04/22/2022 Menorrhagia with irregular cycle 04/22/2022 Anxiety 04/04/2022 Asthma ([facility]) 04/04/2022 Bipolar 1 disorder ([facility]) 04/04/2022 Excess body and facial hair 04/04/2022 Cigarette nicotine dependenc e with nicotine-induced disorder 04/04/2022 Class 3 severe obesity with body mass index (BMI) of 40.0 to 44.9 in adult, unspecified obesity type, unspecified whether serious comorbidity present ([facility]) 04/04/2022 Acne vulgaris 04/04/2022 Resolved Problems Problem Noted Date Diagnosed Date Resolved Date Nipple pain 04/04/2022 07/24/2023 Encounters Date Type Department Care Team Description 04/29/2024 Telephone [facility] Family Medicine - [place] [address] [id number] Daria Main, BETSY Mammography Order; Breast Problem 02/05/2024 12:46 PM DIRECTOR OF CUSTOMER ACQUISITION - 02/05/2024 11:59 PM DIRECTOR OF CUSTOMER ACQUISITION Hospital Encounter [facility] Ultrasound [address] [place] [address] Daria Main NP Discharge Disposition: Home or Self Care (Routine Discharge) 02/05/2024 Travel from Last 3 Months Family History [...] AM CDT Legal Sex Female 6:29 PM DIRECTOR OF CUSTOMER ACQUISITION Gender Identity Female 07/25/2023 7:54 AM CDT Sexual Orientation Lesbian 07/25/2023 7: 54 AM CDT Last Filed Vital Signs Vital Sign Reading Time Taken Comments Blood Pressure 120/82 01/26/2024 11:34 AM DIRECTOR OF CUSTOMER ACQUISITION Pulse 113 01/26/2024 11:34 AM DIRECTOR OF CUSTOMER ACQUISITION Temperature 37.2 C (99 F) 01/26/2024 11:34 AM DIRECTOR OF CUSTOMER ACQUISITION Respiratory Rate 20 01/26/2024 11:34 AM DIRECTOR OF CUSTOMER ACQUISITION Oxygen Saturation 97% 01/26/2024 11:34 AM DIRECTOR OF CUSTOMER ACQUISITION Inhaled Oxygen Concentration - - Weight 115.2 kg (254 lb) 01/26/2024 11:34 AM DIRECTOR OF CUSTOMER ACQUISITION Height 162.6 cm (5' 4 ) 01/26/2024 11:34 AM DIRECTOR OF CUSTOMER ACQUISITION Body Mass Index 43.6 01/26/2024 11:34 AM DIRECTOR OF CUSTOMER ACQUISITION Plan of Treatment Health Maintenance Due Date Last Done Comments Pneumococcal Vaccine: Pediatrics (0 to 5 Years) and At-Risk Patients (6 to 64 Years) (1 of 2 - PCV) 2000 DTaP, Tdap and Td Vaccines ( 1 - Tdap) 2013 Hepatitis B Vaccines (1 of 3 - 19+ 3-dose series) 2013 COVID-19 Vaccine (1 - 2024-2 5 season) 2023 Influenza Adult (#1) 2023 PHQ-2 (Physician [facility]) 03/06/2024 07/13/2023 Annual Physical 07/23/2024 07/24/2023 Cervical [...] OB COMP TA+TV JASON 02/05/2024 1:34 PM DIRECTOR OF CUSTOMER ACQUISITION Abnormal vaginal bleeding Hx of ovarian cyst CYTOPATH CERV/VAG THIN LAYER Routine 07/24/2023 12:00 AM CDT HEPATITIS C ANTIBODY W/RFX TO HCV RNA Routine 04/14/2022 10:11 AM DIRECTOR OF CUSTOMER ACQUISITION Need for hepatitis C screening test from Last 3 Months or Most Recently Relevant to Health Maintenance Results * US PELVIC NON OB COMP TA+TV (02/05/2024 1:34 PM DIRECTOR OF CUSTOMER ACQUISITION) Anatomical Region Laterality Modality Pelvis Ultrasound 02/05/2024 2:21 PM DIRECTOR OF CUSTOMER ACQUISITION Impressions 02/05/2024 2:22 PM DIRECTOR OF CUSTOMER ACQUISITION Impression: Unremarkable sonographic appearance of the uterus and adnexa. Referred By: DARIA MAIN Interpreted By: Brett Muñoz MD, 02/05/2024 2:21 PM Narrative 02/05/2024 2:22 PM DIRECTOR OF CUSTOMER ACQUISITION [address] [address] Procedure: US PELVIC NON OB COMP TA+TV [...] Procedure Note Brett Muñoz MD - 02/05/[address] [address] Procedure: US PELVIC NON OB COMP TA+TV [...] MD, 02/05/2024 2:21 PM us Daria Main NP ULTRASOUND Final Res ult * Cytopath Cerv/Vag Thin Layer (07/24/2023 12:00 AM CDT) THIN PREP PAP [address] [address] Department of Pathology Pathology Report CERVICAL/VAGINAL PAP SMEAR REPORT Name: GUSTAVO NIELSON Age: 4 1995 (Age: 28) Location: [facility] Sex: F Collected Date: 07/24/2023 Hospital #: [id number] Date Received: 07/26/2023 Date Reported: 07/28/2023 Provider: [...] 67. Initial cytologic screening was performed at [facility] [address] [place] [address]. This case was interpreted and signed out at [facility], [address] [facility], [place] [address]. Electronically Signed Out JILLIAN Larose MD (ASCP) [...] is not effective in detecting cervical adenocarcinoma. [facility] 07/24/2023 07/26/2023 7:0 8 AM CDT Comment:CERVICAL/ENDOCERVICA L Daria Main NP PATHOLOGY/CYTOLOGY ORDERA BLES Final Result [facility] [address] [place] [address], * HEPATITIS C ANTIBODY W/RFX TO HCV RNA ([facility] ONLY) (04/14/2022 10:11 AM DIRECTOR OF CUSTOMER ACQUISITION) HEPATITIS C AB NON-REACT ARCHIE NON-REACT ARCHIE [facility] SIGNAL TO CUTOFF 0.07 <1.00 [facility] Comment: HCV antibody was non-reactive. There is no laboratory evidence of HCV infection. In most cases, no further action is required. However, if recent HCV exposure is suspected, a test for HCV RNA (test code 31206) is suggested. For additional information please refer to http://education.[employer].LifePics/faq/WVL54g0 (This link is being provided for informational/ educational purposes only.) 04/14/2022 10:1 1 AM DIRECTOR OF CUSTOMER ACQUISITION 04/14/2022 10:15 AM DIRECTOR OF CUSTOMER ACQUISITION Narrative [facility] - 04/20/2022 1:16 PM DIRECTOR OF CUSTOMER ACQUISITION FASTING:YES FASTING: YES Resulting Agency Comment Performing Organization Information: Site ID: [id number] Name: [employer] Address: [address] [place] [address] Director: Valeria Contreras MD us Daria Main NP LABORATORY Final Res ult [facility] [employer] [facility] [address] [place] [address], from Last 3 Months or Most Recently Relevant to Health Maintenance Care Teams Wine Bottle Inspector Relationship Specialty Start Date End Date Daria Main NP [address] [place] [address] PCP - General NURSE PRACTITIONER 03/31/22
--- OUTSIDE RECORDS SUMMARY | 2024-05-01 13:37 | XMS_ITS | Encounter Summary ---
Author Organization [facility] Address [address] [place] [address] Care Team Providers Care Assistant Analyst Name Role Phone Daria Main NP Primary Care Provider [phone] [phone] Encounter Details Date Type Department Care Team (Late st Contact Info) Description 08/11/2022 [facility] Message Enc [facility] Medical Group Family Medicine - [place] [address] [facility] [address] [place] [id number] Daria Main, BETSY [address] [place] [address] Mammogram Social History Tobacco Use Types Packs/Day [...] AM CDT 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
--- OUTSIDE RECORDS SUMMARY | 2024-05-01 13:37 | XMS_ITS | Encounter Summary ---
Author Organization [facility] Address [address] [place] [address] Care Team Providers Care Vise Hand Name Role Phone Daria Main NP Primary Care Provider [phone] [phone] Encounter Details Date Type Department Care Team (Late st Contact Info) Description 08/31/2022 MyChart Message [facility] [address] [place] [address] MedAdherence[facility], [facility] Provider Air Quality Message Social History Tobacco [...] AM CDT Legal Sex Female 6:29 PM STUCCO PLASTERER Gender Identity Female 07/25/2023 7:54 AM CDT Sexual Orientation Lesbian 07/25/2023 7: 54 AM CDT documented as of this encounter Plan of Treatment Not on file documented as of this encounter Visit Diagnoses Not on filedocumented in this encounter Additional Health Concerns Assessment Noted Time PHQ-9 Depression Total Score: 12 023 12:57 PM STUCCO PLASTERER documented as of this encounter Care Teams Vise Hand Relationship Specialty Start Date End Date Daria Main NP [address] [place] [address] PCP - General NURSE PRACTITIONER 03/31/22 documented as of this encounter
== END 2024-05-01 11:46 | disposition home or self-care (01) ==
LOC: ANHIMG 11:48
PROVIDERS: PCP Nurse Practitioner; Visit Provider Nurse Practitioner
DX: N64.4 Mastodynia (principal); Z80.3 Family history of malignant neoplasm of breast
CPT/HCPCS: 77062; 77066; G0279